=== PATIENT | male | born 1950 | race Two or more races ===

== ENCOUNTER 2016-12-07 16:23 | Emergency (ER) | payer SELFPAY ==
[~2016-12-07] VITALS: Ht 180.3 cm; Wt 70.3 kg
[2016-12-07] MEDS ORDERED: MECLIZINE HCL 25 MG TABLET ONE (17:15)
[2016-12-07 17:19] LABS: EOSINOPHILS # (AUTO) 0.1 /CMM (0.0-0.7); WHITE BLOOD COUNT (AUTO) 13.4 K/uL (4.3-11.0)
[2016-12-07 17:25] LABS: BASOPHILS # (AUTO) 0.2 /CMM (0.0-0.2); BASOPHILS % (AUTO) 1.6 % (0.0-2.0); DIFF TOTAL % 100 %; EOSINOPHILS % (AUTO) 0.6 % (0.0-6.0); HEMATOCRIT 42 % (39-51); LYMPHOCYTES # (AUTO) 1.7 /CMM (0.8-4.8); LYMPHOCYTES % (AUTO) 12.4 % (20.0-44.0); MEAN CORPUSCULAR HEMOGLOBIN 27 PG (26.0-33.0); MEAN CORPUSCULAR HGB CONC 33 g/dl (31.0-36.0); MEAN CORPUSCULAR VOLUME 81 fL (80-96); MONOCYTES # (AUTO) 0.7 /CMM (0.1-1.30); MONOCYTES % (AUTO) 5.5 % (2.0-12.0); NEUTROPHILS # (AUTO) 10.7 /CMM (1.8-8.9); NEUTROPHILS % (AUTO) 79.9 % (43.0-81.0); PLATELET COUNT (AUTO) 290 /CMM (150-450); RED BLOOD CELL COUNT(AUTO) 5.22 MIL/uL (4.5-6.0)
[2016-12-07 17:27] LABS: ANION GAP 11 (5-14); CALCIUM, SERUM 9.6 mg/dL (8.5-10.1); CARBON DIOXIDE 30 mmol/L (21-32); CHLORIDE 101 mmol/L (98-107); CREATININE 1.1 mg/dL (0.6-1.3); GFR 67 mL/min (>60); GLUCOSE 148 mg/dL (74-106); POTASSIUM 3.9 mmol/L (3.5-5.1); SODIUM SERUM 138 mmol/L (136-145); UREA NITROGEN, BLOOD 14 mg/dL (7-18)
[2016-12-07] MEDS ORDERED: MECLIZINE HCL 12.5 MG TABLET PO ONE (17:30)
[2016-12-07 17:36] LABS: TROPONIN I < 0.017 ng/mL (0.00-0.056)
[2016-12-07] MEDS ORDERED: IV NS 0.9% 1,000 ML ONE (18:11)
[2016-12-07] MEDS ORDERED: IV SET PRIMARY PUMP SET 1 EA INFUS.SET MC ONE (18:11)
[2016-12-07] MEDS ORDERED: IV NS 0.9% 1,000 ML BAG IV ONE (18:30)
[2016-12-07 20:31] VITALS: BP 124/79
== END 2016-12-07 20:32 | disposition home or self-care (01) ==
LOC: ER 16:26
DX: R42 Dizziness and giddiness (principal); B34.9 Viral infection, unspecified
CPT/HCPCS: 36415; 80048; 84484; 85025; 87804; 93005; 96360; 99285; A4606; J7030; J8597; Z7610; 87400

== ENCOUNTER 2019-12-07 14:36 | Emergency (ER) | payer BC, MEDICAID, MEDICARE ==
[~2019-12-07] VITALS: Ht 180.3 cm; Wt 62.6 kg
[2019-12-07] MEDS ORDERED: HYDR12.5 PO (14:47)
[2019-12-07] MEDS ORDERED: LISI2.5T2 PO (14:47)
[2019-12-07] MEDS ORDERED: GLIM1TAB18 PO (14:48)
--- NOTE | 2019-12-07 14:50 | NUR ---
DIZZINESS/NAUSEA X 6 DAYS,DENIES WEAKNESS/SLURRING. PATIENT A/OX4, BREATHING EVEN AND UNLABORED, NO SOB NOTED, ATTACHED TO THE MAGISTRATE JUDGE.
--- NOTE | 2019-12-07 15:11 | NUR ---
CALLED NEUROLOGY DR. SRIDHAR LEE [phone]
[2019-12-07] MEDS ORDERED: MECLIZINE HCL 25 MG TABLET ONE (15:16)
[2019-12-07 15:17] LABS: BASOPHILS % (AUTO) 0.4 % (0.0-2.0); EOSINOPHILS % (AUTO) 1.2 % (0.0-6.0); HEMATOCRIT 43 % (39-51); HEMOGLOBIN 14.5 g/dL (13.5-17.5); LYMPHOCYTES # (AUTO) 1.8 /CMM (0.8-4.8); LYMPHOCYTES % (AUTO) 26.5 % (20.0-44.0); MEAN CORPUSCULAR HGB CONC 34 g/dl (31.0-36.0); MEAN CORPUSCULAR VOLUME 83 fL (80-96); MONOCYTES # (AUTO) 0.6 /CMM (0.1-1.30); MONOCYTES % (AUTO) 8.3 % (2.0-12.0); NEUTROPHILS # (AUTO) 4.2 /CMM (1.8-8.9); NEUTROPHILS % (AUTO) 63.6 % (43.0-81.0); PLATELET COUNT (AUTO) 268 /CMM (150-450); RED BLOOD CELL COUNT(AUTO) 5.12 MIL/uL (4.5-6.0); WHITE BLOOD COUNT (AUTO) 6.7 K/uL (4.3-11.0)
[2019-12-07 15:25] LABS: CALCIUM, SERUM 8.9 mg/dL (8.5-10.1); CARBON DIOXIDE 30 mmol/L (21-32); CHLORIDE 93 mmol/L (98-107); CREATININE 1.2 mg/dL (0.6-1.3); GLUCOSE 122 mg/dL (74-106); POTASSIUM 3.9 mmol/L (3.5-5.1); SODIUM SERUM 131 mmol/L (136-145); UREA NITROGEN, BLOOD 17 mg/dL (7-18)
[2019-12-07] MEDS ORDERED: IV NS 0.9% 1,000 ML BAG IV ONE (15:30)
[2019-12-07] MEDS ORDERED: MECLIZINE HCL 12.5 MG TABLET PO ONE (15:30)
[2019-12-07 15:31] LABS: ALANINE AMINOTRANSFERASE 42 U/L (12-78); ALBUMIN 4.3 g/dL (3.4-5.0); ALKALINE PHOSPHATASE 78 U/L (46-116); ASPARTATE AMINOTRANSFERASE 19 U/L (15-37); BILIRUBIN,TOTAL 0.5 mg/dL (0.2-1.0); TOTAL PROTEIN, SERUM 7.9 g/dL (6.4-8.2)
--- NOTE | 2019-12-07 16:30 | NUR ---
DENIES DIZZINES, AMBULATORY IN STEADY GAIT. NO DISTRESS NOTED. FLUIDS COMPLETED.
--- NOTE | 2019-12-07 16:31 | NUR ---
IV removed. Catheter intact and site benign. Pressure and 4x4 applied to site. No bleeding noted. Patient discharged to home in stable condition. Written and verbal after care instructions given. Patient verbalizes understanding of instruction.
[2019-12-07 16:40] VITALS: BP 150/88
== END 2019-12-07 16:40 | disposition home or self-care (01) ==
LOC: ER 14:38
DX: H81.399 Other peripheral vertigo, unspecified ear (principal); E87.1 Hypo-osmolality and hyponatremia; I10 Essential (primary) hypertension; E11.9 Type 2 diabetes mellitus without complications; Z79.899 Other long term (current) drug therapy
CPT/HCPCS: 36415; 80053; 84484; 85025; 93005; 96360; 99284; J7030; J8597